=== PATIENT | male | born 1970 | race Caucasian/White ===

== ENCOUNTER 2021-07-19 19:16 | Emergency (ER) | payer BC ==
[~2021-07-19] VITALS: Ht 188 cm; Wt 104.3 kg
[2021-07-19] MEDS ORDERED: HYDROcodone-ACET 10/325MG TAB PO ONE (20:15)
[2021-07-19] MEDS ORDERED: AZIT1POW PO (20:27)
[2021-07-19 21:55] VITALS: BP 148/76
== END 2021-07-19 22:27 | disposition home or self-care (01) ==
LOC: ER 19:20
DX: R51.9 Headache, unspecified (principal); J01.00 Acute maxillary sinusitis, unspecified; F17.210 Nicotine dependence, cigarettes, uncomplicated
CPT/HCPCS: 70450